=== PATIENT | male | born 1965 | race Caucasian/White ===

== ENCOUNTER 2017-05-26 12:55 | Emergency (ER) | payer MEDICARE, MEDICAID ==
[~2017-05-26] VITALS: Ht 162.6 cm; Wt 76.0 kg
[~2017-05-26 12:55] MED LIST: AMLO5TAB4 PO; ASPI-515 PO; CALC667C PO; INSU100C SQ-INSULIN; LISI-167 PO; LISI-170 PO; LOSA50TA6 PO; METF500T4 PO; PANT40TA3 PO; SEVE800T8 PO; TAMS-11 PO; TRAM-28 PO
[2017-05-26 15:09] VITALS: BP 129/87
== END 2017-05-26 15:13 | disposition home or self-care (01) ==
LOC: ED 13:40
DX: K64.8 Other hemorrhoids (principal); K59.00 Constipation, unspecified; I10 Essential (primary) hypertension; E11.9 Type 2 diabetes mellitus without complications
CPT/HCPCS: 74020; 99284